=== PATIENT | female | born 1970 | race Two or more races ===

== ENCOUNTER → 2023-01-24 | Outpatient (CLI) | payer MEDICAID ==
[~2023-01-24] VITALS: Ht 162.6 cm; Wt 118.4 kg
[~2023-01-24] MED LIST: REGADENOSON 0.4 MG/5 ML SYRG IV ONE
== END | disposition home or self-care (01) ==
LOC: XYW 07:41
PROVIDERS: ATTEND Specialist
DX: R07.9 Chest pain, unspecified (principal); R06.02 Shortness of breath
CPT/HCPCS: 78452; 93017; A9500; J2785